=== PATIENT | male | born 2000 | race Caucasian/White ===

== ENCOUNTER 2019-06-23 15:15 | Inpatient (IN) | payer OTHER ==
[~2019-06-23] VITALS: Ht 175.3 cm; Wt 78.1 kg
[2019-06-23] MEDS ORDERED: KETOROLAC 30 MG/ML VIAL (J1885) IV ONE (17:30)
[2019-06-23] MEDS ORDERED: CLINDAMYCIN 900 MG in IV 1 EA IV ONE (17:30)
[2019-06-23] MEDS ORDERED: ACETAMINOPHEN *IV* 1,000 MG in IV 1 EA IV ONE (17:30)
[2019-06-23 18:02] LABS: BASO % 0.3 % (0.0-1.0); EOS % 0.3 % (0.0-3.0); HEMATOCRIT 41.7 % (42.0-52.0); HEMOGLOBIN 13.9 g/dl (13.5-17.5); LYMPH # 1.1 10^3/uL (1.5-6.5); LYMPH % 7.5 % (24.0-44.0); MEAN CORPUSCULAR HEMOGLOBIN 31.7 pg (27.0-33.0); MEAN CORPUSCULAR HGB CONC 33.3 g/dl (32.0-36.5); MONO # 1.2 10^3/uL (0.0-0.8); NEUTROPHILS # 12.4 10^3/uL (1.8-7.7); NEUTROPHILS % 83.6 % (36.0-66.0); PLATELET COUNT, AUTOMATED 404 10^3/uL (150-450); RED BLOOD COUNT 4.39 10^6/uL (4.30-6.10); WHITE BLOOD COUNT 14.8 10^3/uL (4.0-10.0)
[2019-06-23 18:16] LABS: BLOOD UREA NITROGEN 15 MG/DL (7-18); C REACTIVE PROTEIN QUANTITATIV 3.49 MG/DL (0.00-0.30); CALCIUM LEVEL 9.6 MG/DL (8.5-10.1); CARBON DIOXIDE LEVEL 26 MEQ/L (21-32); CHLORIDE LEVEL 104 MEQ/L (98-107); CREATININE FOR GFR 1.02 MG/DL (0.70-1.30); GLUCOSE, FASTING 68 MG/DL (70-100); POTASSIUM SERUM 3.9 MEQ/L (3.5-5.1); SODIUM LEVEL 140 MEQ/L (136-145)
[2019-06-23 18:42] LABS: ERYTHROCYTE SEDIMENTATION RATE 25 mm/hr (0-15)
[2019-06-23] MEDS ORDERED: ISOVUE-370 76% 100ML VIAL (Q9967) As Ordered ONE (18:49)
--- NOTE | 2019-06-23 20:00 | REPVR ---
EXAM: CT Orbits With Contrast EXAM DATE/TIME: 06/23/2019 6:56 PM CLINICAL HISTORY: 18 years old, male; Mass, lump, or swelling; Maxilla; Additional info: Left periorbital cellulitis TECHNIQUE: Imaging protocol: Computed tomography images of the orbits with intravenous contrast. Coronal and sagittal reformatted images were created and reviewed. Radiation optimization: All CT scans at this facility use at least one of these dose optimization techniques: automated exposure control; mA and/or kV adjustment per patient size (includes targeted exams where dose is matched to clinical indication); or iterative reconstruction. Contrast material: ISOVUE 370;Contrast volume: 75 ml;Contrast route: 100; COMPARISON: No relevant prior studies available. FINDINGS: Orbits: No acute intraorbital abnormality. Globes are unremarkable. Sinuses: Mild mucosal thickening of the left maxillary sinus, with minimal mucosal thickening of the right maxillary sinus. No air-fluid levels within the paranasal sinuses. Bones/joints: No visualized acute fracture of the orbital and visualized facial bones. Soft tissues: Left facial and periorbital swelling identified. No peripherally enhancing loculated fluid collection is visualized to suggest abscess. IMPRESSION: 1. Left facial and periorbital swelling identified. 2. No visualized acute fracture of the orbital and visualized facial bones. 3. Paranasal sinus disease is noted above. Electronically signed by: Yevgeniy Turpin On 06/23/2019 20:00:29 PM
[2019-06-23] MEDS ORDERED: HYDR1CRE9 TOP (20:35)
[2019-06-23] MEDS ORDERED: IBUP80TA PO (20:35)
[2019-06-23] MEDS ORDERED: SODIUM CHLORIDE 0.9% 1000ML IV SCH (20:45)
[2019-06-23] MEDS ORDERED: PIPERACILLIN/TAZOBACTAM SOD 3.375 GM in D5W MINI-BAG PLUS 50 ML IV ONE (20:45)
--- NOTE | 2019-06-23 20:49 | HPEPDOC ---
[facility] Medical History & Physical Date of Admission Jun 23, 2019 Date of Service: Jun 23, 2019 Primary Care Physician: A Other Provider [facility] Attending Physician: TESS BUNCH MD History and Physical TIME OF SERVICE 855PM CHIEF COMPLAINT: Pimple at left lower eye HISTORY OF PRESENT ILLNESS: Mr. De La Rosa is a 18-year-old male who presents with complaints of a pimple at the left lower eyelid that began on Friday and gradually became larger. He now has swelling surrounding the whole left eye. Associated symptoms include fevers. He denies having pain with movement of the left eye, denies having chills, denies having nausea, denies having vomiting, he denies having any other medical problems. Since Friday. He has also been feeling a bit short of breath. Per discussion with the ED provider the CT of the face showed superficial inf ection; he received IV clindamycin. REVIEW OF SYSTEMS: Review of systems negative except as listed in HPI PAST MEDICAL / SURGICAL HISTORY: He denies having a personal history of diabetes, asthma, surgeries, or any other medical problems SOCIAL HISTORY: Denies tobacco Uses alcohol socially Denies IV drug use FAMILY HISTORY: Denies having a family history of diabetes, cancer, or hypertension ALLERGIES: Please see below. HOME MEDICATIONS: Please see below. PHYSICAL EXAMINATION: VITAL SIGNS: Temperature 98.4, pulse 94, respiratory rate 17, blood pressure 97/45 with a map of 62, also oximetry 97% on room air GENERAL APPEARANCE: Well-nourished, well-developed, appears younger than stated age HEENT: There is redness and swelling extending from the left lower cheek to the area surrounding the left eye just below the eyebrow. There is a small pimple at the left cheek with some clear yellow discharge CARDIOVASCULAR: Regular rate and rhythm. No murmurs, rubs or gallops LUNGS: There is decreased air entry and expiratory wheezing bilaterally. He is not coughing NEUROLOGICAL: Cranial nerves II-12 grossly intact, speech is not dysarthric PSYCHIATRIC: Alert and oriented to person, place and time. Able to understand and follow commands LABORATORY DATA: CBC is remarkable for WBC count of 14.8, and ESR of 25. Chemistries remarkable for glucose of 68, and CRP of 3.49 IMAGING: CT of the orbits with contrast shows left facial and periorbital swelling with out an abscess or acute fracture. There is mild paranasal sinus disease. MICROBIOLOGY: Please see below. ASSESSMENT: Mr. De La Rosa is a 18-year-old male with no prior past medical history will be admitted for management of sepsis secondary to left periorbital cellulitis PLAN: 1.Sepsis 2/2 Left Periorbital Abscess / Cellulitis SIRS criterial Temp >101 / WBC >12 ESR & CRP are elevated -MAP 62 -Qsofa Score = 1 point= not high risk -NEW2S Score = 3 points = low risk Plan: admit to PCU / telemetry / Sepsis protocol w lactic acid & blood cx/ 2L bolus / switch from Clindamycin to Zosyn (abx day #1) / NPO pending Ophtalmo logy eval for possible I&D Per d/w Dr.Crane daniel Angulo will be covering tomorow; he agrees that we should continue with antibiotics, suggested we call tomorrow and consult ID as well 2.Wheezing Possibly 2/2 Reactive Airway Disease ? The patient denies a personal or family hx of asthma but has been wheezing since Friday. Plan: since he has a fever we will order a chest xray & neb tx x1 / instructed the patient to follow up with his PCP for PFTs DVT prophylaxis with SCDs. Disposition pending clinical course Laboratory Data CBC/BMP Laboratory Tests 06/23/19 17:36 Red Blood Count 4.39, Mean Corpuscular Volume 95.0, Mean Corpuscular Hemoglobin 31.7, Mean Corpuscular Hemoglobin Concent 33.3, Red Cell Distribution Width 12.3, Neutrophils (%) (Auto) 83.6 H, Lymphocytes (%) (Auto) 7.5 L, Monocytes (%) (Auto) 8.0 H, Eosinophils (%) (Auto) 0.3, Basophils (%) (Auto) 0.3, Neutrophils # (Auto) 12.4 H, Lymphocytes # (Auto) 1.1 L, Monocytes # (Auto) 1.2 H, Eosinophils # (Auto) 0.0, Basophils # (Auto) 0.0, Calcium Level 9.6 Home Medications Scheduled PRN Hydrocortisone (Hydrocortisone) 28 Gm Cream..g., 1 APPLIC TOP BID PRN for ITCHING Ibuprofen (Ibuprofen) 800 Mg Tablet, 800 MG PO Q6H PRN for PAIN Allergies Coded Allergies: No Known Allergies (Unverified , 06/23/19) A-FIB/CHADSVASC A-FIB History Current/History of A-Fib/PAF?: No Current PO Anticoag Therapy: No TESS BUNCH MD Jun 23, 2019 20:49
[2019-06-23] MEDS ORDERED: ALBUTEROL SULFATE 2.5 MG/0.5 ML INH NEB SOLN NEB ONE (21:45)
[2019-06-23 22:00] VITALS: BP 117/59
[2019-06-23 23:59] VITALS: BP 104/46
[2019-06-24 04:00] VITALS: BP 97/51
[2019-06-24 08:00] VITALS: BP 103/56
[2019-06-24 08:12] LABS: HEMATOCRIT 35.8 % (42.0-52.0); MEAN CORPUSCULAR HEMOGLOBIN 31.1 pg (27.0-33.0); MEAN CORPUSCULAR HGB CONC 33.5 g/dl (32.0-36.5); MEAN CORPUSCULAR VOLUME 92.7 fl (80.0-96.0); PLATELET COUNT, AUTOMATED 368 10^3/uL (150-450); RED BLOOD COUNT 3.86 10^6/uL (4.30-6.10); WHITE BLOOD COUNT 9.7 10^3/uL (4.0-10.0)
--- NOTE | 2019-06-24 08:20 | REP ---
Portable chest: Single view. History: Fever and wheezing Comparison study: No comparison study. Findings: The lungs are well inflated and clear. Pleural angles are sharp. Heart size is normal. No bony abnormality is seen. Impression: Negative portable chest x-ray. Electronically Signed by Arie Alvarez MD 06/24/2019 08:11 A
[2019-06-24 09:05] LABS: BLOOD UREA NITROGEN 13 MG/DL (7-18); CARBON DIOXIDE LEVEL 26 MEQ/L (21-32); CHLORIDE LEVEL 108 MEQ/L (98-107); CREATININE FOR GFR 0.87 MG/DL (0.70-1.30); GLUCOSE, FASTING 78 MG/DL (70-100); POTASSIUM SERUM 4.1 MEQ/L (3.5-5.1); SODIUM LEVEL 141 MEQ/L (136-145)
[2019-06-24 09:06] LABS: CALCIUM LEVEL 8.5 MG/DL (8.5-10.1)
[2019-06-24] MEDS ORDERED: CEFTAROLINE FOSAMIL 400 MG in D5W MINI-BAG PLUS 50 ML IV SCH (10:45)
--- NOTE | 2019-06-24 11:23 | IPNPDOC ---
Subjective Date Seen The patient was seen on 06/24/19. Subjective Chief Complaint/HPI Patient's swelling has gone down since yesterday and swelling is draining now, offers no new complaints General: Denies: ROS Unobtainable, Chills, Night Sweats, Fatigue, Malaise, Normal Appetite, Other Symptoms Constitutional: Denies: Chills, Fever, Malaise, Night Sweats, Weakness, Fatigue, Weight Loss, Lethargy, Other Eyes: Reports: Other (swelling around left eye) ENT: Denies: Head Aches, Ear Pain, Dysphagia, Sinus Congestion, Post Nasal Drip, Sore Throat, Epistaxis, Other Symptoms Skin: Denies: Rash, Lesions, Jaundice, Bruising, Itching, Dry, Breakdown, Nail Changes, Other Pulmonary: Denies: Dyspnea, Cough, Pleuritic Chest Pain, Other Symptoms Cardiovascular: Denies: Chest Pain, Palpitations, Orthopnea, Paroxysmal Noc. Dyspnea, Edema, Lt Headedness, Other Symptoms Gastrointestinal: Denies: Nausea, Vomiting, Abdominal Pain, Diarrhea, Constipation, Melena, Hematochezia, Other Symptoms Genitourinary: Denies: Dysuria, Frequency, Incontinence, Hematuria, Retention, Other Symptoms Musculoskeletal: Denies: Neck Pain, Back Pain, Shoulder Pain, Arm Pain, Hand Pain, Leg Pain, Foot Pain, Joint Pain, Muscle Pain, Spasms, Other Symptoms Neurological: Denies: Weakness, Numbness, Incoordination, Change in speech, Confusion, Seizures, Other Symptoms Objective Physical Examination General Exam: Positive: Alert, Cooperative Eye Exam: Positive: PERRLA, Other Eye Symptoms (periorbital abscess around the left eye with the Center puncture lesion) ENT Exam: Negative: Atraumatic, Mucous membr. moist/pink, Pharynx Normal, Tongue Midline, Pharyngeal Edema, Nares Patent, Tympanic Membranes Normal, Ext Auditory Canal Nml, Pinna Normal, Other ENT Neck Exam: Negative: Supple, JVD, thyromegaly, +2 carotid pulse wo bruit, Lymphadenopathy, Other Chest Exam: Negative: Clear to auscultation, Normal air movement, Rales, Rhonchi, Wheezing, Diminished, Other Heart Exam: Negative: Rate Normal, Tachycardic, Bradycardic, Regular Rhythm, Irregular Rhythm, Normal S1, Normal S2, Gallops, Murmurs, Rubs, Other Abdomen Exam: Negative: Normal bowel sounds, BS Hyperactive, BS Hypoactive, Soft, Tenderness, Hepatospenomegaly, Mass, Hernia, Other Skin Exam: Positive: Other skin issue; Negative: Nl turgor and temperature, Rash, Breakdown, Lesion, Pruritus Neuro Exam: Negative: Normal Gait, Normal Speech, Strength at 5/5 X4 ext, Normal Tone, Sensation Intact, Cranial Nerves 3-12 NL, Reflexes 2+, Other Psych Exam: Negative: Mental status NL, Mood NL, Anxiety, Memory Intact, Oriented x 3, Other Assessment /Plan Problems (1) Periorbital cellulitis Status: Acute Problem Text: Patient will be started on Teflaro 600 mg IV every 12 hours for a skin and soft tissue coverage Blood cultures were done Lobular wound cultures Will follow patient clinically Present. He is afebrile, asymptomatic CBC in a.m. Plan/VTE VTE Prophylaxis Ordered?: Yes VS, I&O, 24H, Fishbone Vital Signs/I&O Vital Signs Date Time Temp Pulse Resp B/P (MAP) Pulse Ox O2 Delivery O2 Flow Rate FiO2 06/24/19 08:00 98.9 75 18 103/56 (72) 99 06/23/19 21:07 Room Air I&O- Last 24 Hours up to 6 AM 06/24/19 05:59 Output Total 450 ml Balance -450 ml Laboratory Data 24H LABS Laboratory Tests 2 06/23/19 17:36: Immature Granulocyte % (Auto) 0.3, White Blood Count 14.8H, Red Blood Count 4.39, Hemoglobin 13.9, Hematocrit 41.7L, Mean Corpuscular Volume 95.0, Mean Corpuscular Hemoglobin 31.7, Mean Corpuscular Hemoglobin Concent 33.3, Red Cell Distribution Width 12.3, Platelet Count 404, Neutrophils (%) (Auto) 83.6H, Lymphocytes (%) (Auto) 7.5L, Monocytes (%) (Auto) 8.0H, Eosinophils (%) (Auto) 0.3, Basophils (%) (Auto) 0.3, Neutrophils # (Auto) 12.4H, Lymphocytes # (Auto) 1.1L, Monocytes # (Auto) 1.2H, Eosinophils # (Auto) 0.0, Basophils # (Auto) 0.0, Nucleated Red Blood Cells % (auto) 0.0, Erythrocyte Sedimentation Rate 25H, Anion Gap 10, Blood Urea Nitrogen 15, Creatinine 1.02, Sodium Level 140, Potassium Level 3.9, Chloride Level 104, Carbon Dioxide Level 26, Calcium Level 9.6, C-Reactive Protein, Quantitative 3.49H 06/23/19 23:11: Lactic Acid Level 1.0 06/24/19 06:15: Nucleated Red Blood Cells % (auto) 0.0, Anion Gap 7L, Blood Urea Nitrogen 13, Creatinine 0.87, Sodium Level 141, Potassium Level 4.1, Chloride Level 108H, Carbon Dioxide Level 26, Calcium Level 8.5 CBC/BMP Laboratory Tests 06/23/19 17:36 Red Blood Count 4.39, Mean Corpuscular Volume 95.0, Mean Corpuscular Hemoglobin 31.7, Mean Corpuscular Hemoglobin Concent 33.3, Red Cell Distribution Width 12.3, Neutrophils (%) (Auto) 83.6 H, Lymphocytes (%) (Auto) 7.5 L, Monocytes (%) (Auto) 8.0 H, Eosinophils (%) (Auto) 0.3, Basophils (%) (Auto) 0.3, Neutrophils # (Auto) 12.4 H, Lymphocytes # (Auto) 1.1 L, Monocytes # (Auto) 1.2 H, Eosinophils # (Auto) 0.0, Basophils # (Auto) 0.0, Calcium Level 9.6 06/24/19 06:15 Red Blood Count 3.86 L, Mean Corpuscular Volume 92.7, Mean Corpuscular Hemoglobin 31.1, Mean Corpuscular Hemoglobin Concent 33.5, Red Cell Distribution Width 12.5, Calcium Level 8.5 Microbiology Microbiology 06/23/19 Blood Culture, Received Pending KATHLEEN MARIE MD Jun 24, 2019 11:23
[2019-06-24 12:00] VITALS: BP 97/55
[2019-06-24] MEDS ORDERED: IBUPROFEN 800 MG TAB PO PRN (12:00)
[2019-06-24] MEDS: CEFTAROLINE FOSAMIL 600 MG in D5W MINI-BAG PLUS 50 ML IV SCH (12:06)
[2019-06-24 16:00] VITALS: BP 113/68
[2019-06-24 18:56] VITALS: BP 109/64
[2019-06-25] MEDS: CEFTAROLINE FOSAMIL 600 MG in D5W MINI-BAG PLUS 50 ML IV SCH ×2 (00:01→12:49)
[2019-06-25 04:00] VITALS: BP 110/56
[2019-06-25 07:10] LABS: BASO % 0.6 % (0.0-1.0); EOS # 0.2 10^3/uL (0.0-0.50); EOS % 4.6 % (0.0-3.0); HEMATOCRIT 38.1 % (42.0-52.0); HEMOGLOBIN 12.6 g/dl (13.5-17.5); LYMPH # 1.4 10^3/uL (1.5-6.5); LYMPH % 27.5 % (24.0-44.0); MEAN CORPUSCULAR HEMOGLOBIN 31.7 pg (27.0-33.0); MEAN CORPUSCULAR HGB CONC 33.1 g/dl (32.0-36.5); MONO # 0.8 10^3/uL (0.0-0.8); MONO % 14.9 % (0.0-5.0); NEUTROPHILS # 2.6 10^3/uL (1.8-7.7); NEUTROPHILS % 52.2 % (36.0-66.0); PLATELET COUNT, AUTOMATED 396 10^3/uL (150-450); RED BLOOD COUNT 3.97 10^6/uL (4.30-6.10)
[2019-06-25 07:34] LABS: ALBUMIN 3.4 GM/DL (3.2-5.2); ALT/SGPT 23 U/L (12-78); BILIRUBIN,TOTAL 0.2 MG/DL (0.2-1.0); BLOOD UREA NITROGEN 14 MG/DL (7-18); CALCIUM LEVEL 8.7 MG/DL (8.5-10.1); CARBON DIOXIDE LEVEL 28 MEQ/L (21-32); CHLORIDE LEVEL 108 MEQ/L (98-107); CREATININE FOR GFR 1.02 MG/DL (0.70-1.30); GLUCOSE, FASTING 98 MG/DL (70-100); POTASSIUM SERUM 3.8 MEQ/L (3.5-5.1); SODIUM LEVEL 142 MEQ/L (136-145); TOTAL PROTEIN 6.8 GM/DL (6.4-8.2)
[2019-06-25 08:00] VITALS: BP_SYST 125; BP_SYST 144; BP_DIAS 69; BP_DIAS 73
--- NOTE | 2019-06-25 10:43 | IPNPDOC ---
Subjective Date Seen The patient was seen on 06/25/19. Subjective Chief Complaint/HPI Swelling is much better. His eyes wide open General: Denies: ROS Unobtainable, Chills, Night Sweats, Fatigue, Malaise, Norm al Appetite, Other Symptoms Constitutional: Denies: Chills, Fever, Malaise, Night Sweats, Weakness, Fatigue, Weight Loss, Lethargy, Other Eyes: Denies: Pain, Vision change, Conjunctivae inflammation, Eyelid inflammation, Redness, Other ENT: Denies: Head Aches, Ear Pain, Dysphagia, Sinus Congestion, Post Nasal Drip, Sore Throat, Epistaxis, Other Symptoms Skin: Denies: Rash, Lesions, Jaundice, Bruising, Itching, Dry, Breakdown, Nail Changes, Other Pulmonary: Denies: Dyspnea, Cough, Pleuritic Chest Pain, Other Symptoms Cardiovascular: Denies: Chest Pain, Palpitations, Orthopnea, Paroxysmal Noc. Dyspnea, Edema, Lt Headedness, Other Symptoms Gastrointestinal: Denies: Nausea, Vomiting, Abdominal Pain, Diarrhea, Constipation, Melena, Hematochezia, Other Symptoms Musculoskeletal: Denies: Neck Pain, Back Pain, Shoulder Pain, Arm Pain, Hand Pain, Leg Pain, Foot Pain, Joint Pain, Muscle Pain, Spasms, Other Symptoms Neurological: Denies: Weakness, Numbness, Incoordination, Change in speech, Confusion, Seizures, Other Symptoms Psych: Denies: Mood Normal, Anxiety, Depression, Memory Issues, Thoughts of Self Harm, Anger, Thoughts of Harming Other, Other Psych Objective Physical Examination General Exam: Positive: Alert, Cooperative Eye Exam: Positive: PERRLA, Other Eye Symptoms (periorbital abscess around the left eye with the Center puncture lesion) ENT Exam: Negative: Atraumatic, Mucous membr. moist/pink, Pharynx Normal, Tongue Midline, Pharyngeal Edema, Nares Patent, Tympanic Membranes Normal, Ext Auditory Canal Nml, Pinna Normal, Other ENT Neck Exam: Negative: Supple, JVD, thyromegaly, +2 carotid pulse wo bruit, Lymphadenopathy, Other Chest Exam: Negative: Clear to auscultation, Normal air movement, Rales, Rhonchi, Wheezing, Diminished, Other Heart Exam: Negative: Rate Normal, Tachycardic, Bradycardic, Regular Rhythm, Irregular Rhythm, Normal S1, Normal S2, Gallops, Murmurs, Rubs, Other Abdomen Exam: Negative: Normal bowel sounds, BS Hyperactive, BS Hypoactive, Soft, Tenderness, Hepatospenomegaly, Mass, Hernia, Other Skin Exam: Positive: Other skin issue; Negative: Nl turgor and temperature, Rash, Breakdown, Lesion, Pruritus Neuro Exam: Negative: Normal Gait, Normal Speech, Strength at 5/5 X4 ext, Normal Tone, Sensation Intact, Cranial Nerves 3-12 NL, Reflexes 2+, Other Psych Exam: Negative: Mental status NL, Mood NL, Anxiety, Memory Intact, Oriented x 3, Other Assessment /Plan Problems (1) Periorbital cellulitis Status: Acute Problem Text: Patient is improving very well. , Continue Teflaro Wound culture is pending Possible discharge in a.m. A.m. level work has been ordered Plan/VTE VTE Prophylaxis Ordered?: Yes VS, I&O, 24H, Fishbone Vital Signs/I&O Vital Signs Date Time Temp Pulse Resp B/P (MAP) Pulse Ox O2 Delivery O2 Flow Rate FiO2 06/25/19 08:00 97.5 81 18 125/69 (87) 100 06/23/19 21:07 Room Air I&O- Last 24 Hours up to 6 AM 06/25/19 06:00 Intake Total 3890 ml Output Total 1125 ml Balance 2765 ml Laboratory Data 24H LABS Laboratory Tests 2 06/25/19 06:32: Immature Granulocyte % (Auto) 0.2, White Blood Count 5.0, Red Blood Count 3.97L, Hemoglobin 12.6L, Hematocrit 38.1L, Mean Corpuscular Volume 96.0, Mean Corpuscular Hemoglobin 31.7, Mean Corpuscular Hemoglobin Concent 33.1, Red Cell Distribution Width 12.4, Platelet Count 396, Neutrophils (%) (Auto) 52.2, Lymphocytes (%) (Auto) 27.5, Monocytes (%) (Auto) 14.9H, Eosinophils (%) (Auto) 4.6H, Basophils (%) (Auto) 0.6, Neutrophils # (Auto) 2.6, Lymphocytes # (Auto) 1.4L, Monocytes # (Auto) 0.8, Eosinophils # (Auto) 0.2, Basophils # (Auto) 0.0, Nucleated Red Blood Cells % (auto) 0.0, Anion Gap 6L, Blood Urea Nitrogen 14, Creatinine 1.02, Sodium Level 142, Potassium Level 3.8, Chloride Level 108H, Carbon Dioxide Level 28, Calcium Level 8.7, Aspartate Amino Transf (AST/SGOT) 13, Alanine Aminotransferase (ALT/SGPT) 23, Alkaline Phosphatase 51, Total Bilirubin 0.2, Total Protein 6.8, Albumin 3.4, Albumin/Globulin Ratio 1.00 CBC/BMP Laboratory Tests 06/25/19 06:32 Red Blood Count 3.97 L, Mean Corpuscular Volume 96.0, Mean Corpuscular Hemoglobin 31.7, Mean Corpuscular Hemoglobin Concent 33.1, Red Cell Distribution Width 12.4, Neutrophils (%) (Auto) 52.2, Lymphocytes (%) (Auto) 27.5, Monocytes (%) (Auto) 14.9 H, Eosinophils (%) (Auto) 4.6 H, Basophils (%) (Auto) 0.6, Neutrophils # (Auto) 2.6, Lymphocytes # (Auto) 1.4 L, Monocytes # (Auto) 0.8, Eosinophils # (Auto) 0.2, Basophils # (Auto) 0.0, Calcium Level 8.7, Aspartate Amino Transf (AST/SGOT) 13, Alanine Aminotransferase (ALT/SGPT) 23, Alkaline Phosphatase 51, Total Bilirubin 0.2, Total Protein 6.8, Albumin 3.4 Microbiology Microbiology 06/23/19 Blood Culture - Preliminary, Resulted No growth after 24 hours . All specim... 06/24/19 Gram Stain - Final, Resulted 06/24/19 Wound Culture, Resulted Pending KATHLEEN MARIE MD Jun 25, 2019 10:43
[2019-06-25 16:00] VITALS: BP 114/54
[2019-06-25 17:30] VITALS: BP 129/65
[2019-06-25 20:30] VITALS: BP 116/55
[2019-06-26] MEDS: CEFTAROLINE FOSAMIL 600 MG in D5W MINI-BAG PLUS 50 ML IV SCH (01:03)
[2019-06-26 01:12] VITALS: BP 107/55
[2019-06-26 05:30] VITALS: BP 108/56
[2019-06-26 08:00] VITALS: BP 128/63
[2019-06-26] MEDS ORDERED: CLIN150C14 PO ×2 (09:01→14:11)
[2019-06-26 09:21] LABS: HEMATOCRIT 41.4 % (42.0-52.0); HEMOGLOBIN 13.7 g/dl (13.5-17.5); MEAN CORPUSCULAR HEMOGLOBIN 30.6 pg (27.0-33.0); MEAN CORPUSCULAR HGB CONC 33.1 g/dl (32.0-36.5); MEAN CORPUSCULAR VOLUME 92.6 fl (80.0-96.0); PLATELET COUNT, AUTOMATED 457 10^3/uL (150-450); RED BLOOD COUNT 4.47 10^6/uL (4.30-6.10); WHITE BLOOD COUNT 4.9 10^3/uL (4.0-10.0)
[2019-06-26 09:54] LABS: ALBUMIN 3.8 GM/DL (3.2-5.2); ALT/SGPT 24 U/L (12-78); BILIRUBIN,TOTAL 0.2 MG/DL (0.2-1.0); BLOOD UREA NITROGEN 12 MG/DL (7-18); CALCIUM LEVEL 9.3 MG/DL (8.5-10.1); CARBON DIOXIDE LEVEL 29 MEQ/L (21-32); CHLORIDE LEVEL 104 MEQ/L (98-107); GLUCOSE, FASTING 98 MG/DL (70-100); POTASSIUM SERUM 4.1 MEQ/L (3.5-5.1); SODIUM LEVEL 139 MEQ/L (136-145); TOTAL PROTEIN 7.8 GM/DL (6.4-8.2)
--- NOTE | 2019-06-26 16:19 | DS.PDOC ---
Discharge Summary General Date of Admission Jun 24, 2019 at 10:43 Date of Discharge 06/26/19 Discharge Summary PROCEDURES PERFORMED DURING STAY: None. ADMITTING DIAGNOSES: 1. steven-orbital abscess. DISCHARGE DIAGNOSES: 1. Facial abscess/steven-orbital abscess , MRSA infection. COMPLICATIONS/CHIEF COMPLAINT: Periorbital Cellulitis. HISTORY OF PRESENT ILLNESS: Mr. De La Rosa is a 18-year-old male who presents with complaints of a pimple at the left lower eyelid that began on Friday and gradually became larger. He now has swelling surrounding the whole left eye. Associated symptoms include fevers. He denies having pain with movement of the left eye, denies having chills, denies having nausea, denies having vomiting, he denies having any other medical problems. Since Friday. He has also been feeling a bit short of breath. Per discussion with the ED provider the CT of the face showed superficial infection; he received IV clindamycin.. HOSPITAL COURSE: Patient was admitted with the steven-orbital abscess. Initially he was started on clindamycin but patient was started on teflaro Suspecting MRSA infection, surgical consult was called but patient's wound was already draining spontaneously. Hence, the wound culture was sent out. Patient responded very well to the IV antibiotics. His swelling came down and is redness is gone afebrile. WBC count within normal range and the wound culture is consistent with staphylococcus which is MRSA and sensitive to clindamycin. Patient can be discharged home on by mouth clindamycin for 10 days.. DISCHARGE MEDICATIONS: Please see below. ALLERGIES: Please see below. PHYSICAL EXAMINATION ON DISCHARGE: VITAL SIGNS: Please see below. GENERAL: Within normal limits HEENT: PERRLA. Extraocular muscles intact NECK: Supple CARDIOVASCULAR EXAMINATION: S1, S2, regular RESPIRATORY EXAMINATION: Clear to A&P ABDOMINAL EXAMINATION: Benign, soft, nontender EXTREMITIES: Clubbing, cyanosis, edema SKIN: Resolving swelling and redness on left cheek just under the left eye NEUROLOGICAL EXAMINATION: . No focal motor or sensory deficit PSYCHIATRIC EXAMINATION: Normal LABORATORY DATA: Please see below. IMAGING: Orbital CT report: IMPRESSION: 1. Left facial and periorbital swelling identified. 2. No visualized acute fracture of the orbital and visualized facial bones. 3. Paranasal sinus disease is noted above. PROGNOSIS: Good ACTIVITY: As tolerated. DIET: As tolerated DISCHARGE PLAN: Follow with PCP in one week DISPOSITION: 01 Home, Self-Care. DISCHARGE INSTRUCTIONS: 1. As per discharge instructions. ITEMS TO FOLLOWUP ON ON OUTPATIENT: 1. Follow with PCP in one week. DISCHARGE CONDITION: Stable. TIME SPENT ON DISCHARGE: 45 minutes. Vital Signs/I&Os Vital Signs Date Time Temp Pulse Resp B/P (MAP) Pulse Ox O2 Delivery O2 Flow Rate FiO2 06/26/19 08:00 97.4 63 17 128/63 (84) 99 06/23/19 21:07 Room Air I&O- Last 24 Hours up to 6 AM 06/26/19 06:00 Intake Total 2330 ml Output Total 800 ml Balance 1530 ml Laboratory Data Labs 24H Laboratory Tests 2 06/26/19 09:02: Nucleated Red Blood Cells % (auto) 0.0, Anion Gap 6L, Blood Urea Nitrogen 12, Creatinine 1.00, Sodium Level 139, Potassium Level 4.1, Chloride Level 104, Carbon Dioxide Level 29, Calcium Level 9.3, Aspartate Amino Transf (AST/SGOT) 14, Alanine Aminotransferase (ALT/SGPT) 24, Alkaline Phosphatase 53, Total Bilirubin 0.2, Total Protein 7.8, Albumin 3.8, Albumin/Globulin Ratio 0.95L CBC/BMP Laboratory Tests 06/26/19 09:02 Red Blood Count 4.47, Mean Corpuscular Volume 92.6, Mean Corpuscular Hemoglobin 30.6, Mean Corpuscular Hemoglobin Concent 33.1, Red Cell Distribution Width 12.4, Calcium Level 9.3, Aspartate Amino Transf (AST/SGOT) 14, Alanine Aminotransferase (ALT/SGPT) 24, Alkaline Phosphatase 53, Total Bilirubin 0.2, Total Protein 7.8, Albumin 3.8 Microbiology Microbiology 06/23/19 Blood Culture - Preliminary, Resulted No Growth after 48 hours. All Specime... 06/24/19 Gram Stain - Final, Complete 06/24/19 Wound Culture - Final, Complete Staph.aureus Methicillin Resis Discharge Medications Scheduled Clindamycin Hcl (Clindamycin HCl) 150 Mg Capsule, 150 MG PO QID Clindamycin Hcl (Clindamycin HCl) 150 Mg Capsule, 150 MG PO QID Scheduled PRN Ibuprofen (Ibuprofen) 800 Mg Tablet, 800 MG PO Q6H PRN for PAIN, (Reported) Allergies Coded Allergies: No Known Allergies (Unverified , 06/23/19) KATHLEEN MARIE MD Jun 26, 2019 16:19
== END 2019-06-26 10:35 | disposition home or self-care (01) | DRG 603 ==
LOC: M ED 15:15 → M ED INP 15:16 → UNDOADMOB 20:18 → M ED INP 20:18 → M PCU 21:55 → EEVIPCON 06-24 10:43 → OBSVTOIN 06-24 10:43 → M PCU 06-25 07:38 → M PED 06-25 17:30
PROVIDERS: ADMIT Internal Medicine; ATTEND Internal Medicine
DX: L03.213 Periorbital cellulitis (principal); B95.62 Methicillin resistant Staphylococcus aureus infection as the cause of diseases classified elsewhere; L03.211 Cellulitis of face